=== PATIENT | female | born 1980 | race African-American/Black ===

== ENCOUNTER → 2017-09-24 | Outpatient (CLI) | payer BC ==
[~2017-09-24] MED LIST: AMLO10TA2 PO; DIAZ5 PO; ERYTOIN10 LEFT EYE; PREN29TA PO
== END ==
LOC: CPRE 12:16
PROVIDERS: ATTEND Obstetrics & Gynecology
DX: Z01.818 Encounter for other preprocedural examination (principal)

== ENCOUNTER → 2017-09-30 | Day surgery (SDC) | payer BC ==
[~2017-09-30] VITALS: Ht 142.2 cm; Wt 79.9 kg
[~2017-09-30] MED LIST changes: +*PROMETHAZINE 25 MG/ML VIAL PERIprocedural use ONLY ONE; +*morphine SULFATE 10 MG/ML PERIprocedure ONLY ONE; +ACETAMINOPHEN 1000 MG/100 ML 100 ML IV ONE; +CHLORHEXIDINE GLUCONATE 2 % 1 PACK (2 CLOTHS) TOPICAL PRN; +DEXAMETHASONE SOD PHOS 4 MG/ML VIAL IV ONE; +DO NOT ADM ANY ANTICOAGULANT DRUGS PRN; -ERYTOIN10 LEFT EYE; +GLYCOPYRROLATE 1 MG/5 ML SYRINGE IV PUSH ONE; +LACTATED RINGER'S 1000 ML IV PRN; +LIDOCAINE HCL 1% PF 5 ML SYRINGE OTHER ONE; +METOPROLOL TARTRATE 25 MG TAB PO PRN; +MIDAZOLAM HCL 2 MG/2 ML VIAL ONE; +NEOSTIGMINE 5 MG/5 ML SYRINGE IV PUSH ONE; +ONDANSETRON HCL 4 MG/2 ML VIAL IV ONE; +ONDANSETRON HCL 4 MG/2 ML VIAL IV PUSH PRN; +POVIDONE IODINE 5% (ANTISEPSIS KIT) 4 APPLICATIONS EACH NARE PRN; +PROPOFOL 200 MG/20 ML AMP IV ONE; +ROCURONIUM INJ 50 MG/5 ML SYRINGE IV PUSH ONE; +SODIUM CHLORID 0.9% 500 ML IV PRN; +oxyCODONE/ACETAMINOPHEN 5 MG/325 MG TAB PO PRN
[2017-09-30 08:35] LABS: AUTOMATED NEUTROPHIL # 1.4 TH/MM3 (1.8-7.7); BASOPHIL % 1.1 % (0.0-2.0); EOSINOPHIL % 0.8 % (0.0-4.0); HEMATOCRIT 39.3 % (35.0-46.0); HEMOGLOBIN 13.5 GM/DL (11.6-15.3); LYMPHOCYTE # 1.2 TH/MM3 (1.0-4.8); MEAN CELL VOLUME 89.5 FL (80.0-100.0); MEAN CORPUSCULAR HEMOGLOBIN 30.7 PG (27.0-34.0); MEAN CORPUSCULAR HGB CONC 34.3 % (32.0-36.0); MONO % 7.8 % (0.0-8.0); MONOCYTE # 0.2 TH/MM3 (0-0.9); NEUT % 48.3 % (16.0-70.0); PLATELET COUNT 379 TH/MM3 (150-450); RED BLOOD COUNT 4.39 MIL/MM3 (4.00-5.30); RED CELL DISTRIBUTION WIDTH 13.5 % (11.6-17.2); WHITE BLOOD COUNT 2.9 TH/MM3 (4.0-11.0)
[2017-09-30 09:02] LABS: AST (GOT) 18 U/L (15-37); BICARBONATE 22.8 MEQ/L (21.0-32.0); BLOOD UREA NITROGEN 8 MG/DL (7-18); CALCIUM 9.4 MG/DL (8.5-10.1); CHLORIDE 105 MEQ/L (98-107); CREATININE 0.81 MG/DL (0.50-1.00); GLOMERULAR FILTRATION RATE 95 ML/MIN (>89); GLUCOSE,RANDOM 86 MG/DL (74-106); SODIUM (NA) 138 MEQ/L (136-145)
[2017-09-30 09:03] LABS: ALT (GPT) 25 U/L (10-53)
[2017-09-30 09:06] LABS: ALKALINE PHOSPHATASE 67 U/L (45-117); TOTAL BILIRUBIN ADULT 0.4 MG/DL (0.2-1.0)
--- NOTE | 2017-09-30 12:54 | MP ---
cc: Naomy Smith MD DATE OF OPERATION: 09/30/2017 PREOPERATIVE DIAGNOSIS: 1. Severe dyspareunia. 2. Chronic pelvic pain. POSTOPERATIVE DIAGNOSIS: 1. Severe dyspareunia. 2. Chronic pelvic pain. 3. Left ovarian cyst. 4. Pelvic adhesions. 5. Endometriosis. PROCEDURES PERFORMED: Examination under anesthesia, dilation and curettage of the uterus, hysteroscopic exam of the uterus, laparoscopic exam with lysis of adhesions, left ovarian cystectomy, coagulation of endometriosis with a left ovarian cystectomy, lysis of adhesions and coagulation of endometriosis. ANESTHESIA: General endotracheal intubation. SURGEON: Naomy Smith MD FINDINGS: Examination under anesthesia, the vagina was clean, the cervix was clean and nulliparous without lesions. The uterus was normal size, shape and consistency and freely mobile. The adnexa was negative for masses. A D and C and hysteroscopic exam revealed a cavity that sounded to 7.5 cm. The endometrium was clean. There was no submucous myomas or polyps seen. The D and C revealed a small amount of tissue with a gentle curettage. Laparoscopic exam revealed a large left ovarian cyst approximately 3 x 4 cm that was stuck to the pelvic side wall. This was easily taken down and the cyst was removed completely and the cyst wall was peeled off and coagulated. There were adhesions to the left ovary to the left pelvic sidewall, which were easily taken down. There were adhesions of the right ovary. The entire ovary was encased in adhesions, but they were flimsy and easy to take down. There was one adhesion from the tip of the appendix to the ovary, which was easily taken down. It was about 3 cm in length. The right tube was normal in length and caliber, but the fimbriated end was phimosed. The left fallopian tube was normal in length and caliber and that fimbriated end looks normal. The uterus was normal in size, shape and consistency. The upper abdomen, there were adhesions of the liver to the anterior abdominal wall. These were taken down. This was remarkable for Iasc-Rcam-Vmfrqk syndrome. COMPLICATIONS: None. COUNTS: Correct. ESTIMATED BLOOD LOSS: Minimal. DISPOSITION: The patient tolerated the procedure well and went to the recovery room in satisfactory condition. OPERATIVE NOTE: The patient was taken to the operating room, identified by name band and verbally, given a general anesthetic, carefully placed in dorsal lithotomy position, prepped and draped in the usual sterile manner. She had a Langley catheter inserted and a timeout was taken. Examination under anesthesia was carried out with the above findings. A weighted speculum was placed in the vagina. The anterior lip of the cervix was grasped with single-tooth tenaculum. The cervix was serially dilated without difficulty and the hysteroscope was inserted. The hysteroscopic exam was somewhat suboptimal. It was hard to get a good picture, but I think I saw a lot of the endometrial surface fairly well. There were no polyps or submucous myomas. We then performed a gentle curettage with a #1 sharp curette. The Hulka clamp was placed and attention was turned to the umbilical area. A small subumbilical incision was made and a 5 mm trocar was used to enter the abdomen without difficulty and the pneumoperitoneum was created with 3 liters of CO2. The ovarian cyst and the endometriosis and the scar tissue was noted at this time, so we elected to put a second puncture in the left lower quadrant with a 10 mm trocar and on the right side with a 5 mm trocar under direct vision without difficulty. The first order of business was to remove that cyst. First of all, we had to take down the adhesions, which held the ovary to the pelvic sidewall. This was done with the Harmonic scalpel. Then, using the Harmonic scalpel, we removed the cyst in its entirety and we tried to peel off as much of the cyst wall off the remaining ovary as possible. Then, we went behind that and with the Kleppinger forceps, we coagulated that until hemostasis was achieved. There was still a good portion of the ovary remaining on that side and we irrigated that area. Inside of the uterosacral ligaments on the left side, there was one spot of endometriosis which we coagulated with the bipolar Kleppinger forceps. Next, I turned our attention to the right ovary. This was encased in adhesions, but these were fairly easy to take down because they were flimsy and we did that with the Harmonic scalpel and blunt dissection. The tip of the appendix had an adhesion going to the ovary as well and we took that down with the Harmonic scalpel very close to the appendix. The appendix looked normal in length and caliber. There was no disease evident at all, so we left it. The upper abdomen; however, we looked and there were several adhesions violin strings from the liver to the anterior abdominal wall suggestive of a Thji-Ulno-Ovwwny syndrome. These were taken down with the Harmonic scalpel as well. At this point, we irrigated the entire area carefully and hemostasis was excellent and we removed the laparoscope under direct vision and then we removed the 10-12 mm trocar. We repaired the fascia with a 2-0 Vicryl in a [id number] fashion with good results. Then, we released all the air through the right lower quadrant incision and that trocar was removed very slowly. At this point, all incisions were repaired with a 4-0 Monocryl in a subcuticular manner with excellent results. The Hulka clamp was removed. She was taken to the recovery room in satisfactory condition. R. Wily Smith MD RJV/TEE , 12:19 PM , 12:53 PM
[2017-09-30 14:45] VITALS: BP 129/69; PULSE 102; RESP 14; TEMP 97.7; O2SAT 100
== END | disposition home or self-care (01) ==
LOC: HSDC 07:26
PROVIDERS: ATTEND Obstetrics & Gynecology
DX: N73.6 Female pelvic peritoneal adhesions (postinfective) (principal); N83.202 Unspecified ovarian cyst, left side; N80.9 Endometriosis, unspecified; R10.2 Pelvic and perineal pain; G89.29 Other chronic pain; I10 Essential (primary) hypertension
CPT/HCPCS: 00840; 58558; 58662; 80053; 84703; 85025; 88304; 88305; J0131; J1100; J2250; J2270; J2405; J2550; J2710; J3010; J7120